=== PATIENT | female | born 1955 | race Caucasian/White ===

== ENCOUNTER 2021-11-05 14:24 | Emergency (ER) | payer SELFPAY ==
[2021-11-05 15:05] VITALS: BP 127/70; PULSE 64; TEMP 97.9; BMI 22.6
[2021-11-05] MEDS ORDERED: MECLIZINE HCL 25 MG TABLET (FP) PO ONE (15:42)
[2021-11-05] MEDS ORDERED: ONDANSETRON *ODT* 4 MG TABLET SL ONE (15:45)
[2021-11-05] MEDS ORDERED: ONDANSETRON *ODT* 4 MG TABLET ONE (15:47)
[2021-11-05] MEDS ORDERED: MECLIZINE HCL 25 MG TABLET (FP) ONE (15:47)
== END 2021-11-05 17:19 | disposition home or self-care (01) ==
LOC: JERFT 14:24
DX: R42 Dizziness and giddiness (principal)
CPT/HCPCS: 99283-25; Q0162